=== PATIENT | female | born 1975 | race Caucasian/White ===

== ENCOUNTER → 2016-04-13 | Outpatient (CLI) | payer OTHER ==
--- NOTE | 2016-04-13 19:35 | MR ---
EXAMINATION TYPE: MR lumbar spine wo con DATE OF EXAM: 04/13/2016 5:34 PM COMPARISON: NONE HISTORY: Low Back Pain TECHNIQUE: Multiplanar, multisequence images of the lumbar spine were acquired. T12-L1 there is Schmorl's node moderate degenerative disc disease is a small focal left paracentral d isc herniation. Mild compression of the thecal sac. Neural foramina remain patent. L1-L2: Normal disc appearance without desiccation. No herniation, protrusion or disc bulging. No ca nal stenosis is present. Foramina are patent bilaterally. L2-L3: Normal disc appearance without desiccation. No herniation, protrusion or disc bulging. No ca nal stenosis is present. Foramina are patent bilaterally. Mild hypertrophic change of the facets L3-L4: Normal disc appearance without desiccation. No herniation, protrusion or disc bulging. No ca nal stenosis is present. Foramina are patent bilaterally. Mild hypertrophic change of the facets. L4-L5: Normal disc appearance without desiccation. No herniation, protrusion or disc bulging. No ca nal stenosis is present. Foramina are patent bilaterally. Mild hypertrophic change of the facets. L5-S1: Normal disc appearance without desiccation. No herniation, protrusion or disc bulging. No ca nal stenosis is present. Foramina are patent bilaterally. Mild hypertrophic change of the facets. Lumbar segments are intact. No paraspinal masses are identified. Conus medullaris has a normal appe arance. Cysts are seen within the adnexa bilaterally likely related to the ovary with the largest on the left measuring 1.8 cm. IMPRESSION: At T12-L1 there is a focal small left paracentral disc herniation with mild effacement of thecal sac but no evidence of nerve root impingement. 1.8 cm left ovarian cyst
== END | disposition home or self-care (01) ==
LOC: RADMRIMAIN 16:42
PROVIDERS: ATTEND Physician Assistant
DX: M51.25 Other intervertebral disc displacement, thoracolumbar region (principal)
CPT/HCPCS: 72148

== ENCOUNTER → 2016-04-28 | Outpatient (CLI) | payer OTHER ==
[2016-04-20 13:19] VITALS: BMI 26.6
[2016-04-28 15:05] VITALS: BP 120/85; PULSE 86; RESP 16; TEMP 97.7
--- NOTE | 2016-04-28 16:04 | P.HPIM ---
History of Present Illness H&P Date: 04/28/16 Chief Complaint: low back pain This is a 41-year-old patient referred by Dr. Rabago for chronic pain in low back and legs. Patient has been taking medications from primary care physician including tramadol medications with some relief but with nausea to these medications. Patient denies adverse drug effects from medications. Patient also denies new-onset weakness, bowel/bladder incontinence, or any other signs or symptoms of cauda equina syndrome. There are no signs of acute intoxication, and no indications of medication diversion or overuse. Patient notes that pain worsens significantly with standing and walking, and improves with rest, ice, and medication. Patient has used several types of medications for pain, including NSAIDS, OPIOIDS, TRAMADOL, ANTIDEPRESSANTS, and BENZODIAZEPINES. Patient HAS NOT had surgery. Patient HAS NOT had injections previously. Patient HAS NOT had physical therapy recently. In addition to above, 13-point review of systems is also negative for chest pain , shortness of breath, changes in vision, changes in hearing, new onset weakness , abdominal pain, diarrhea, extreme fatigue, malaise, fever, skin changes, homicidal or suicidal ideation, or bowel or bladder incontinence. Vital Signs: Reviewed in EMR Gen: WDWN, AAOx3, NAD HEENT: NCAT, EOMI, hearing grossly normal Pulm: resp unlabored Abd: soft, NT, ND Neck: supple, trachea midline ROM in flexion lumbar spine: reduced ROM in extension lumbar spine: reduced Lumbar paravertebral tenderness: + Facet loading: ++ bilateral SI joint tenderness: + bilateral, R > L Kali's test: + R >> L Lower extremity: strength preserved Neuro: CN II-XII grossly intact Past Medical History Past Medical History: Osteoarthritis (OA), Thyroid Disorder Additional Past Medical History / Comment(s): lower back pain History of Any Multi-Drug Resistant Organisms: None Reported Past Surgical History: Appendectomy, Cholecystectomy, Tonsillectomy, Tubal Ligation Additional Past Surgical History / Comment(s): Tubes placed in ears when 5 years old. Past Anesthesia/Blood Transfusion Reactions: No Reported Reaction Past Psychological History: No Psychological Hx Reported Smoking Status: Current every day smoker Past Alcohol Use History: Occasional Additional Past Alcohol Use History / Comment(s): smoker since 11 years old 1ppd Past Drug Use History: None Reported - Past Family History Mother Family Medical History: No Reported History Medications and Allergies Home Medications Medication Instructions Recorded Confirmed Type Gabapentin [Neurontin] 300 mg PO TID 02/13/16 04/20/16 History Levothyroxine Sodium [Synthroid] 175 mcg PO DAILY 02/13/16 04/20/16 History Amitriptyline HCl [Elavil] 75 mg PO BID 04/20/16 04/28/16 History Cyclobenzaprine [Flexeril] 10 mg PO TID 04/20/16 04/28/16 History Meloxicam [Mobic] 15 mg PO DAILY 04/20/16 04/28/16 History traMADol HCl [Ultram] 50 mg PO DAILY 04/20/16 04/28/16 History Allergies Allergy/AdvReac Type Severity Reaction Status Date / Time No Known Allergies Allergy Verified 04/28/16 14:55 Results Comments: MRI lumbar spine dated 04/13/2016 demonstrates a Schmorl's node of the T12-L1 level with moderate degenerative disc disease and a small focal left paracentral disc herniation. The remainder of the lumbar spine demonstrates normal disc appearance is without desiccation and mild hypertrophic changes of the facet at the L2-L3, L3-L4, L4-L5, and L5-S1 levels. Assessment and Plan (1) Lumbosacral spondylosis without myelopathy Status: Chronic (2) Chronic pain syndrome Status: Chronic (3) Lumbar degenerative disc disease Status: Chronic Plan: 1. Explanation: Opioid and psychological risk scores were reviewed. Diagnoses , prognoses, and multiple treatment options including but not limited to physical therapy, interventional therapies, adjuvant medical therapies, narcotic medication therapies, and surgery were discussed with the patient and all questions were answered to the patient's satisfaction. 2. Opioid agreement: no opioids prescribed today 3. Counseling: The patient was counseled extensively on SMOKING CESSATION, BODY MASS INDEX, EXERCISE. Specifically, the patient was instructed regarding the importance of smoking cessation, obesity, and exercise in the context of both chronic pain and overall health. 4. Procedures: bilateral lumbar MBB as soon as possible 5. Consultations: none 6. Investigations: none 7. Medications: Voltaren gel 8. Disposition: f/u for procedure as scheduled PQRS measures: 1-Patient's medications are documented in the chart. 2-Tobacco use is positive, counseling given 3-Patient has not had a pneumococcal vaccine. 4-Advanced care planning discussed, patient unable to give. 5-Opioid contract NOT signed with the patient (no opioids given today). 6-Pain positive, follow-up visit or procedure scheduled 7-Patient's blood pressure measured and documented, and patient will follow up with the primary care due to hypertension. 8-Patient's weight was measured, and body mass index ABOVE the normal limits, and counseling was done. Patient instructed to follow up with PCP. 9-Patient WAS NOT identified as an unhealthy alcohol user. Time with Patient: Greater than 30
== END | disposition home or self-care (01) ==
LOC: PNWHC3 14:28
PROVIDERS: ATTEND Anesthesiology
DX: M47.816 Spondylosis without myelopathy or radiculopathy, lumbar region (principal); G89.4 Chronic pain syndrome; M51.36 Other intervertebral disc degeneration, lumbar region; Z79.899 Other long term (current) drug therapy; F17.200 Nicotine dependence, unspecified, uncomplicated; I10 Essential (primary) hypertension; M19.90 Unspecified osteoarthritis, unspecified site; E07.9 Disorder of thyroid, unspecified
CPT/HCPCS: 99211

== ENCOUNTER 2016-05-09 06:28 | Day surgery (SDC) | payer OTHER ==
[2016-05-06 08:30] VITALS: BMI 25.7
[2016-05-09] MEDS ORDERED: LIDOCAINE 1% 20 ML VIAL (10MG/ML) FOR IV START INTRADERMA ONE (06:31)
[2016-05-09] MEDS ORDERED: LACTATED RINGERS 1,000 ML IV ONE (06:44)
[2016-05-09 06:47] VITALS: RESP 16; TEMP 96.1
[2016-05-09] MEDS ORDERED: fentaNYL (PF) 50 MCG/ML 2 ML AMP ONE (07:31)
[2016-05-09] MEDS ORDERED: BUPIVACAINE (PF) 0.5% 30 ML VIAL ONE (07:31)
[2016-05-09] MEDS ORDERED: IV FLUID CONTINUATION 1,000 ML IV ONE (08:05)
--- NOTE | 2016-05-09 08:06 | P.PCN ---
Date of Procedure: 05/09/16 Preoperative Diagnosis: Lumbar spondylosis without myelopathy Postoperative Diagnosis: Lumbar spondylosis without myelopathy Procedure(s) Performed: Bilateral lumbar medial branch block under fluoroscopic guidance Anesthesia: MAC Surgeon: Hodan Gilbert Pathology: none sent Condition: stable Disposition: PACU Description of Procedure: The patient was seen in the preoperative holding area consent was obtained then she was brought into the procedure room and placed in prone position. Skin was prepped with ChloraPrep and draped in a sterile manner. Lidocaine 1% was used to numb the skin up at the target points that were chosen as follows: For the L5 -S1 level which corresponds to the dorsal ramus of L5 the target points were at the superior medial aspect of the sacral alar on each side of the spine on the AP view of fluoroscopy. For the L3 and L4 medial branches the target points were the connection between the transverse process and the superior to go process of L4 and L5 vertebra respectively on the oblique view of fluoroscopy. I used 22-gauge 3-1/2 inch Quincke spinal needle for this procedure and after contacting bone at the target points mentioned above I injected 1 mL of Marcaine 0.5%. I did not use steroids for this procedure and also did not give any IV fentanyl. Patient tolerated procedure well. On floroscopy it looks that there is sacralization of the fifth lumbar vertebra however this was not mentioned on the patient's lumbar spine MRI.
[2016-05-09] MEDS ORDERED: LACTATED RINGERS 1,000 ML IV SCH (08:15)
[2016-05-09 08:27] VITALS: BP 123/81; PULSE 81
--- NOTE | 2016-05-09 08:52 | FL ---
EXAMINATION TYPE: FL guided pain mgmt statistic DATE OF EXAM: 05/09/2016 8:03 AM HISTORY: Flouroscopy time 14 seconds of fluoroscopy provided. IMPRESSION: 1. Fluoroscopy time.
== END 2016-05-09 08:41 | disposition home or self-care (01) ==
LOC: ORPAIN 06:28
PROVIDERS: ATTEND Anesthesiology
DX: M47.816 Spondylosis without myelopathy or radiculopathy, lumbar region (principal); M43.27 Fusion of spine, lumbosacral region
CPT/HCPCS: 81025; 64493; 64494; 64495; J3010

== ENCOUNTER 2016-05-16 18:59 | Emergency (ER) | payer OTHER ==
--- NOTE | 2016-05-16 19:55 | ED ---
General Adult HPI - General Chief complaint: Skin/Abscess/Foreign Body Stated complaint: finger pain Time Seen by Provider: 05/16/16 19:40 Source: patient, RN notes reviewed Mode of arrival: wheelchair Limitations: no limitations - History of Present Illness Initial comments: Patient 41-year-old female who presents emergency room today with a chief complaint of injury to the left thumb occurred approximately 1 AM this morning. Patient does admit that got stuck in a house door. Patient denies any other injuries or complaints. Denies any other symptoms. Patient denies any recent fever, chills, shortness of breath, chest pain, back pain, abdominal pain, nausea or vomiting, numbness or tingling, dysuria or hematuria, constipation or diarrhea, headaches or visual changes, or any other complaints. - Related Data Home Medications Medication Instructions Recorded Confirmed Gabapentin [Neurontin] 300 mg PO HS PRN 02/13/16 05/16/16 Levothyroxine Sodium [Synthroid] 175 mcg PO DAILY 02/13/16 05/16/16 Cyclobenzaprine [Flexeril] 10 mg PO TID 04/20/16 05/16/16 Meloxicam [Mobic] 15 mg PO DAILY 04/20/16 05/16/16 Previous Rx's Medication Instructions Recorded Cephalexin [Keflex] 500 mg PO Q12HR 10 Days 05/16/16 Allergies Allergy/AdvReac Type Severity Reaction Status Date / Time No Known Allergies Allergy Verified 05/16/16 19:49 Review of Systems ROS Statement: Those systems with pertinent positive or pertinent negative responses have been documented in the HPI. ROS Other: All systems not noted in ROS Statement are negative. Past Medical History Past Medical History: Osteoarthritis (OA), Skin Disorder, Thyroid Disorder Additional Past Medical History / Comment(s): lower back pain, psoriasis History of Any Multi-Drug Resistant Organisms: None Reported Past Surgical History: Appendectomy, Cholecystectomy, Tonsillectomy, Tubal Ligation Additional Past Surgical History / Comment(s): Tubes placed in ears when 5 years old. Past Anesthesia/Blood Transfusion Reactions: No Reported Reaction Past Psychological History: No Psychological Hx Reported Smoking Status: Current every day smoker Past Alcohol Use History: Occasional Additional Past Alcohol Use History / Comment(s): smoker since 11 years old 1ppd Past Drug Use History: None Reported - Past Family History Mother Family Medical History: No Reported History General Exam - General Exam Comments Initial Comments: General: The patient is awake and alert, in no distress, and does not appear acutely ill. Neck: The neck is supple, there is no tenderness or JVD. Cardiovascular: There is a regular rate and rhythm. No murmur, rub or gallop is appreciated. Respiratory: Lungs are clear to auscultation, respirations are non-labored, breath sounds are equal. No wheezes, stridor, rales, or rhonchi. Musculoskeletal: Full range of motion. Sensation intact pulses bilateral 2+. Strength 5/5. Neurological: A&O x 3. CN II-XII intact, There are no obvious motor or sensory deficits. Coordination appears grossly intact. Speech is normal. Skin: Avulsion of nail of the left thumb. Psychiatric: Normal mood and affect. Limitations: no limitations Course Vital Signs 05/16/16 19:12 Temperature 98.4 F Pulse Rate 80 Respiratory 20 Rate Blood Pressure 145/83 O2 Sat by Pulse 96 Oximetry Procedures - Procedures Initial comment: Patient's left thumb was anesthetized at the head of the metacarpals with 1% lidocaine. Area was heavily irrigated with saline under pressure revealing avulsion type laceration of the nailbed. Nothing suturable. Nail was cleaned cut down and touch back in under nail fold and sutured with 5-0 nylon. 2 sutures placed to both medial and lateral aspect to hold nail into place. Patient tolerated well. Medical Decision Making - Medical Decision Making X-rays reviewed and shows no acute fracture dislocation. Patient's wound was irrigated heavily here in the emergency room. The skin avulsion type of the nailbed. Patient's nail tacked back down here in the emergency room. Patient is advised follow-up with hand specialist. Wound has been open for greater than 18 hours. Patient will be started on antibiotics. Tetanus updated. Disposition Clinical Impression: Avulsion of nail Disposition: HOME SELF-CARE Condition: Good Instructions: Nail Avulsion (ED) Additional Instructions: Please follow-up with orthopedics over the next 2 days. Please use antibiotic as prescribed. Please return to emergency room symptoms increase or worsen or for any other concerns. Prescriptions: Cephalexin [Keflex] 500 mg PO Q12HR 10 Days Referrals: Elan Rabago PAC [Primary Care Provider] - 1-2 days Mervin Lopez DO [Doctor of Osteopathic Medicine] - 1-2 days Time of Disposition: 20:39
--- NOTE | 2016-05-16 20:04 | XR ---
EXAMINATION TYPE: XR finger LT DATE OF EXAM: 05/16/2016 7:55 PM COMPARISON: NONE HISTORY: Laceration and pain TECHNIQUE: 3 views FINDINGS: There is soft tissue deformity at the nail bed consistent with laceration. I see no fractur e. Joint spaces are normal. IMPRESSION: Soft tissue deformity of the and of the thumb. No fracture.
[2016-05-16] MEDS ORDERED: DIPH,PERTUS(ACELL)TETVAC-LF 0.5 ML VIAL IM ONE (20:10)
[2016-05-16 20:56] VITALS: BP 146/89; PULSE 83; RESP 16; TEMP 97.7
== END 2016-05-16 20:56 | disposition home or self-care (01) ==
LOC: EC 18:59
DX: S61.112A Laceration without foreign body of left thumb with damage to nail, initial encounter (principal); M19.90 Unspecified osteoarthritis, unspecified site; E07.9 Disorder of thyroid, unspecified; Z23 Encounter for immunization; F17.200 Nicotine dependence, unspecified, uncomplicated; W23.0XXA Caught, crushed, jammed, or pinched between moving objects, initial encounter
CPT/HCPCS: 12001; 90471; 90715; 99283

== ENCOUNTER 2016-06-15 09:18 | Day surgery (SDC) | payer OTHER ==
[2016-06-13 09:36] VITALS: BMI 24.3
[~2016-06-15 09:18] MED LIST: LACTATED RINGERS 1,000 ML IV SCH
[2016-06-15 09:30] VITALS: RESP 16; TEMP 98.1
[2016-06-15] MEDS ORDERED: LIDOCAINE 1% 20 ML VIAL (10MG/ML) FOR IV START INTRADERMA ONE (09:34)
[2016-06-15] MEDS ORDERED: MIDAZOLAM 2 MG/2 ML VIAL ONE (09:50)
[2016-06-15] MEDS ORDERED: TRIAMCINOLONE ACETONIDE 40 MG/ML 1 ML VIAL ONE (09:50)
[2016-06-15] MEDS ORDERED: BUPIVACAINE (PF) 0.5% 30 ML VIAL ONE (09:50)
[2016-06-15] MEDS ORDERED: fentaNYL (PF) 50 MCG/ML 2 ML AMP ONE (09:50)
--- NOTE | 2016-06-15 10:06 | P.PCN ---
Date of Procedure: 06/15/16 Surgeon: Jakub Polanco Pathology: none sent Condition: stable Disposition: PACU Description of Procedure: PREOPERATIVE DIAGNOSIS: L3-L4, L4-L5, and L5-S1 spondylosis without myelopathy and facet arthropathy. POSTOPERATIVE DIAGNOSIS: L3-L4, L4-L5, and L5-S1 spondylosis without myelopathy and facet arthropathy. PROCEDURE DESCRIPTION: Patient presents for bilateral L3, L4 and L5 diagnostic medial branch blocks under fluoroscopic guidance. The procedure is performed using fluoroscopic guidance during needle placement to assure proper position and maximize safety. ANESTHESIA: Local with 1% lidocaine; conscious sedation EBL: Minimal PROCEDURE INDICATION: Patient with lumbar facet arthropathy signs and symptoms, here for diagnostic medial branch block #2 after three weeks of relief from MBB #1 during which no steroids were used. Pt does not take any blood thinning medications. PROCEDURE DESCRIPTION: The patient was seen and identified in the preoperative area. Risks, benefits, complications, and alternatives were discussed with the patient (including but not limited to incomplete pain relief, bleeding, infection, nerve damage, and allergies to medications), the patient agreed to proceed with the procedure and signed the consent after all questions were answered. Patient was taken to the OR and time out was completed to verify proper patient, position, laterality of pain, and allergies. Pt was placed in the prone position and a pillow was placed under the abdomen to reduce lumbar lordosis. The lumbosacral area was prepped and draped in the usual sterile fashion. Using oblique fluoroscopy, the eye of the "Dat dog" of right L4 vertebral body, which corresponds to the path of the medial branch originating from the level above, which is L3 in this case, was identified. Subsequently, a 22-gauge 3.5-inch spinal needle was inserted under fluoroscopic guidance toward the eye of the "Dat dog" of the right L4 vertebral body, corresponding to the junction of the superior articular process and the transverse process of the pedicle of the same level. After needle tip confirmation on lateral view and after negative aspiration for CSF and blood and without paresthesias, 1 mL of a 6 ml solution of 0.5% preservative-free bupivacaine and 40 mg Kenalog was injected. Subsequently the needle was withdrawn intact and the same procedure was repeated for the right L4, right L5, left L3, left L4, and left L5 medial branches which together with right L3 medial branch correspond to the sensory innervation of the bilateral L3-L4, L4-L5, and L5-S1 facet joints. Needle was withdrawn intact after each injection. At the end of the procedure, the skin was cleansed and bandages were applied. COMPLICATIONS: None. DISPOSITION/PLAN: The patient taken to the recovery area after the procedure in a stable condition for observation. Patient was reexamined prior to discharge and there were no issues. Patient was discharged home, accompanied by an adult, after meeting discharged criteria. Discharge instructions were give to the patient by the staff. Patient was specifically instructed not to drive today and to rest for the rest of the day. Patient will follow up for left lumbar RFA if this procedure does not give her extended relief; if it does, we will see her back in clinic in 4-6 weeks.
[2016-06-15] MEDS ORDERED: IV FLUID CONTINUATION 1,000 ML IV ONE (10:19)
[2016-06-15 10:35] VITALS: BP 134/88; PULSE 81
--- NOTE | 2016-06-15 11:53 | FL ---
EXAMINATION TYPE: FL guided pain mgmt statistic DATE OF EXAM: 06/15/2016 10:18 AM HISTORY: Flouroscopy time 13 seconds of fluoroscopy provided. IMPRESSION: 1. Fluoroscopy time.
== END 2016-06-15 10:50 | disposition home or self-care (01) ==
LOC: ORPAIN 09:18
PROVIDERS: ATTEND Anesthesiology
DX: G89.29 Other chronic pain (principal); M47.817 Spondylosis without myelopathy or radiculopathy, lumbosacral region; M46.96 Unspecified inflammatory spondylopathy, lumbar region; E03.9 Hypothyroidism, unspecified; Z79.1 Long term (current) use of non-steroidal anti-inflammatories (NSAID); Z79.899 Other long term (current) drug therapy
CPT/HCPCS: 81025; 64493; 64494; 64495; 99152; 99153; J2250; J3301; J3010

== ENCOUNTER → 2016-07-28 | Outpatient (CLI) | payer OTHER ==
--- NOTE | 2016-07-28 21:12 | MR ---
EXAMINATION TYPE: MR lumbar spine wo/w con DATE OF EXAM: 07/28/2016 5:07 PM COMPARISON: Prior MRI lumbar spine April 13, 2016 HISTORY: Chronic low back pain, left-sided sciatica, and herniated disc all per order. Back pain into left lower extremity for 4 years per patient. TECHNIQUE: Multiplanar, multisequence images of the lumbar spine is performed without and with IV contrast, util izing 15 mL intravenous MultiHance FINDINGS: Sagittal images of the lumbar spine show vertebral body heights and alignment to appear sat isfactory. Prominent Schmorl nodes T11-T12 and T12-L1 disc space level are redemonstrated. There is m ultilevel disc desiccation. There is moderate disc space narrowing L5-S1 level redemonstrated. Oil Painter ior disc herniation T12-L1 level is redemonstrated on sagittal images. The conus medullaris remains s omewhat high in position ending at mid T12 vertebral body level but no suspicious signal or clumping of lumbosacral nerve roots is present. The bone marrow signal intensity is within normal limits. No suspicious postcontrast enhancement is seen. Mild multilevel spurring in the lower thoracic and upper lumbar spine is redemonstrated. Axial images at the T12-L1 level shows mild to moderate broad disc bulge with left paracentral/forami nal disc protrusion component on axial image 28, there is effacement of the anterolateral thecal sac, bilateral neural foramina are patent. No significant change from prior study is seen. Axial images at the L1-L2 through the L3-L4 levels show mild broad disc bulge and facet degenerative changes bilaterally, spinal canal is preserved and bilateral neural foramina remain patent. Axial images at the L4-L5 level shows mild/moderate facet degenerative changes bilaterally. Spinal ca nal is preserved and bilateral neural foramina are patent. Axial images at L5-S1 level show mild facet degenerative changes bilaterally. There is prominence of epidural fat at this level redemonstrated. Bilateral neural foramina are patent. There is redemonstration of normal size left ovary with peripheral follicles on inferior most axial i mages. IMPRESSION: Some multilevel degenerative changes in lumbar spine as detailed above most prominent at T12-L1 level, no significant change from prior MRI, no significant finding is seen to account for pat cheri's left-sided radiculopathy type symptoms.
== END | disposition home or self-care (01) ==
LOC: RADMRIMAIN 15:42
PROVIDERS: ATTEND Physician Assistant
DX: M47.815 Spondylosis without myelopathy or radiculopathy, thoracolumbar region (principal); G89.29 Other chronic pain
CPT/HCPCS: 72158; A9577

== ENCOUNTER → 2017-01-06 | Outpatient (CLI) | payer OTHER ==
--- NOTE | 2017-01-09 11:59 | MM ---
Reason for exam: screening (asymptomatic). Last mammogram was performed 1 year and 9 months ago. Physical Findings: A clinical breast exam by your physician is recommended on an annual basis and results should be correlated with mammographic findings. MG Screening Mammo w CAD Bilateral CC and MLO view(s) were taken. Prior study comparison: April 06, 2015, bilateral MG screening mammo w CAD. The breast tissue is heterogeneously dense. This may lower the sensitivity of mammography. There is no discrete abnormality. No significant changes when compared with prior studies. ASSESSMENT: Negative, BI-RAD 1 RECOMMENDATION: Routine screening mammogram of both breasts in 1 year.
== END | disposition home or self-care (01) ==
LOC: RADMAMWWP 08:48
PROVIDERS: ATTEND Family Medicine
DX: Z12.31 Encounter for screening mammogram for malignant neoplasm of breast (principal)

== ENCOUNTER 2017-09-10 21:43 | Emergency (ER) | payer OTHER ==
[2017-09-10] MEDS ORDERED: SODIUM CHLORIDE 0.9% 1,000 ML IV STA (22:18)
[2017-09-10 22:53] LABS: Appearance,Urine Clear (Clear); Bilirubin,Urine Negative (Negative); Blood,Urine Negative (Negative); Color,Urine Yellow; Glucose,Urine (UA) Negative (Negative); Ketones,Urine Negative (Negative); Leukocyte Esterase,Urine Negative (Negative); Nitrite,Urine Negative (Negative); PH, Urine 5.5 (5.0-8.0); Protein,Urine Negative (Negative); Specific Gravity,Urine 1.018 (1.001-1.035)
[2017-09-10 22:53] LABS: Basophils % (A) 0 %; Eosinophils # (A) 0.3 k/uL (0-0.7); Eosinophils % (A) 2 %; HCT 39.8 % (34.0-46.0); Lymphocytes # (A) 2.9 k/uL (1.0-4.8); Lymphocytes % (A) 26 %; MCH 27.9 pg (25.0-35.0); MCHC 32.7 g/dL (31.0-37.0); MCV 85.1 fL (80.0-100.0); Mean Platelet Volume 7.1; Monocytes # (A) 0.5 k/uL (0-1.0); Monocytes % (A) 4 %; Neutrophils # (A) 7.4 k/uL (1.3-7.7); Neutrophils % (A) 66 %; Platelet Count 315 k/uL (150-450); RBC 4.68 m/uL (3.80-5.40); RDW 15.1 % (11.5-15.5); WBC 11.2 k/uL (3.8-10.6)
[2017-09-10 23:09] LABS: ALT 28 U/L (9-52); AST 27 U/L (14-36); Albumin 4.3 g/dL (3.5-5.0); Alkaline Phosphatase 79 U/L (38-126); Anion Gap 14 mmol/L; Blood Urea Nitrogen 15 mg/dL (7-17); Calcium 10.3 mg/dL (8.4-10.2); Carbon Dioxide 21 mmol/L (22-30); Chloride 106 mmol/L (98-107); Glucose 98 mg/dL (74-99); Lipase 80 U/L (23-300); Magnesium 2.1 mg/dL (1.6-2.3); Potassium 4.1 mmol/L (3.5-5.1); Sodium 141 mmol/L (137-145); Total Bilirubin 0.3 mg/dL (0.2-1.3)
--- NOTE | 2017-09-10 23:33 | CT ---
EXAMINATION TYPE: CT abdomen pelvis w con DATE OF EXAM: 09/10/2017 COMPARISON: 02/16/2016 HISTORY: LLQ abd pain x2 days. CT DLP: 826 mGycm Automated exposure control for dose reduction was used. TECHNIQUE: Helical acquisition of images was performed from the lung bases through the pelvis. CONTRAST: Performed without Oral Contrast and with IV Contrast, patient injected with 100ml mL of Isovue 300. FINDINGS: There is mild subsegmental atelectasis at the right posterior lung base. There are small hiatal herni a. Liver spleen pancreas appear normal. There are clips from cholecystectomy. Bile ducts are not dilated . There is no adrenal mass. Kidneys show satisfactory contrast opacification. There is no hydronephrosi s. Ureters are not dilated. There is no retroperitoneal adenopathy. There is no ascites. I see no int estinal wall thickening. There are no dilated loops. Bladder distends smoothly. The uterus is antever iris. I see no bony destructive process. Appendix is not seen. There is no sign of appendicitis. IMPRESSION: NEGATIVE CT SCAN OF THE ABDOMEN AND PELVIS. THERE IS CLEARING OF THE INFILTRATE AND ATELECTASIS AT TH E LUNG BASES AND PLEURAL FLUID COMPARED TO OLD EXAM.
[2017-09-11] MEDS ORDERED: KETOROLAC 30 MG/ML 1 ML VIAL IVP STA (00:03)
--- NOTE | 2017-09-11 00:07 | ED ---
Abdominal Pain HPI - General Chief Complaint: Abdominal Pain Stated Complaint: abdominal pain Time Seen by Provider: 09/10/17 21:53 Source: patient Mode of arrival: ambulatory Limitations: no limitations - History of Present Illness Initial Comments: Patient is a 42-year-old female presenting for abdominal pain. She states that the pain started last night and is located on the lower left portion of her abdomen. It feels like a stabbing constant pain that radiates upward and is worse with coughing or movement. She denies any fevers or chills as well as nausea/vomiting but does admit to diarrhea. She also denies any dysuria or abnormal vaginal bleeding or discharge. - Related Data Home Medications Medication Instructions Recorded Confirmed Gabapentin [Neurontin] 300 mg PO QAM PRN 02/13/16 06/13/16 Levothyroxine Sodium [Synthroid] 175 mcg PO DAILY 02/13/16 06/13/16 Cyclobenzaprine [Flexeril] 10 mg PO TID PRN 04/20/16 06/13/16 Meloxicam [Mobic] 15 mg PO DAILY PRN 04/20/16 06/15/16 Previous Rx's Medication Instructions Recorded Albuterol Inhaler [Ventolin Hfa 1 - 2 puff INHALATION Q6HR PRN #1 09/11/17 Inhaler] inhaler Ibuprofen [Motrin] 600 mg PO Q6HR PRN #20 tab 09/11/17 Allergies Allergy/AdvReac Type Severity Reaction Status Date / Time No Known Allergies Allergy Verified 09/10/17 21:51 Review of Systems ROS Statement: Those systems with pertinent positive or pertinent negative responses have been documented in the HPI. Constitutional: Negative for chills, fatigue and fever. HENT: Negative for congestion. Respiratory: Negative for chest tightness, shortness of breath and wheezing. Negative for cough Cardiovascular: Negative for chest pain and palpitations. Gastrointestinal: Positive for abdominal pain and diarrhea. Negative for abdominal distention, nausea and vomiting. Genitourinary: Negative for dysuria. Musculoskeletal: Negative for back pain, neck pain and neck stiffness. Skin: Negative for color change. Neurological: Negative for dizziness, speech difficulty, weakness and light- headedness. Psychiatric/Behavioral: Negative for agitation and confusion. The patient is not nervous/anxious. ROS Other: All systems not noted in ROS Statement are negative. Past Medical History Past Medical History: Osteoarthritis (OA), Skin Disorder, Thyroid Disorder Additional Past Medical History / Comment(s): lower back pain, psoriasis History of Any Multi-Drug Resistant Organisms: None Reported Past Surgical History: Appendectomy, Cholecystectomy, Tonsillectomy, Tubal Ligation Additional Past Surgical History / Comment(s): Tubes placed in ears when 5 years old. Past Anesthesia/Blood Transfusion Reactions: No Reported Reaction Past Psychological History: No Psychological Hx Reported Smoking Status: Current every day smoker Past Alcohol Use History: Occasional Past Drug Use History: None Reported - Past Family History Mother Family Medical History: No Reported History General Exam - General Exam Comments Initial Comments: Constitutional: Pt is oriented to person, place, and time. Pt appears well- developed and well-nourished. No distress. HENT: Head: Normocephalic and atraumatic. Eyes: EOM are normal. Neck: Normal range of motion. Neck supple. Cardiovascular: Normal rate, regular rhythm, S1 normal, S2 normal and normal heart sounds. Exam reveals no gallop and no friction rub. No murmur heard. Pulmonary/Chest: Effort normal and breath sounds normal. No tachypnea and no bradypnea. No respiratory distress. No wheezes or rales noted. Abdominal: Soft. Bowel sounds are normal. Pt exhibits no shifting dullness, no distension, no pulsatile liver, no fluid wave, no abdominal bruit and no ascites. There is no tenderness. There is no rigidity, no rebound, no guarding, no tenderness at McBurney's point and negative Leone's sign. Musculoskeletal: Normal range of motion. Neurological: Pt is alert and oriented to person, place, and time. No cranial nerve deficit. Skin: Skin is warm and dry. No rash noted. Pt is not diaphoretic. No erythema. No pallor. Psychiatric: Pt has a normal mood and affect. Pt behavior is normal. Thought content normal. Limitations: no limitations Course Vital Signs 09/10/17 21:49 Temperature 98.6 F Pulse Rate 80 Respiratory 18 Rate Blood Pressure 139/70 O2 Sat by Pulse 100 Oximetry Medical Decision Making - Medical Decision Making Laboratory studies currently show that there is no significant leukocytosis and urinalysis was negative for both and urinary tract infection. CT of the abdomen was performed and showed no evidence of acute pathology as well. Etiology of the symptoms are still unclear and therefore transvaginal ultrasound to evaluate for ovarian torsion and/or ovarian cyst has been ordered and is pending. 1:19AM - pelvic ultrasound was unable to visualize bilateral ovaries but uterus showed no evidence acute pathology. Therefore pelvic exam was completed and there was no adnexal tenderness nor was there vaginal discharge or other findings consistent with infectious etiology. After further discussion, patient states that the pain is worse when she coughs as well as perform certain movements. Extensive discussion was also had with the patient that based on ultrasound of the pelvis, ovarian torsion not be completely excluded but based on physical exam findings and no adnexal tenderness, it was less likely. He was mutually decided that the patient could be discharged home with a prescription for Motrin and she should have close close follow-up with [facility] in the next 1-2 days. She is also advised to return to the emergency department if the symptoms became much worse. Lastly, the patient stated that she has been coughing long and is currently worse with her increased smoking. Because the patient was not having any chest pain or shortness breath or fevers or chills, chest x-ray was not performed. Nonetheless, it was felt that albuterol could be beneficial and therefore was prescribed. Patient was agreeable plan. - Lab Data Result diagrams: 09/10/17 22:35 09/10/17 22:35 Lab Results 09/10/17 09/10/17 09/10/17 Range/Units 22:35 22:35 22:40 WBC 11.2 H (3.8-10.6) k/uL RBC 4.68 (3.80-5.40) m/uL Hgb 13.0 (11.4-16.0) gm/dL Hct 39.8 (34.0-46.0) % MCV 85.1 (80.0-100.0) fL MCH 27.9 (25.0-35.0) pg MCHC 32.7 (31.0-37.0) g/dL RDW 15.1 (11.5-15.5) % Plt Count 315 (150-450) k/uL Neutrophils % 66 % Lymphocytes % 26 % Monocytes % 4 % Eosinophils % 2 % Basophils % 0 % Neutrophils # 7.4 (1.3-7.7) k/uL Lymphocytes # 2.9 (1.0-4.8) k/uL Monocytes # 0.5 (0-1.0) k/uL Eosinophils # 0.3 (0-0.7) k/uL Basophils # 0.0 (0-0.2) k/uL Sodium 141 (137-145) mmol/L Potassium 4.1 (3.5-5.1) mmol/L Chloride 106 (98-107) mmol/L Carbon Dioxide 21 L (22-30) mmol/L Anion Gap 14 mmol/L BUN 15 (7-17) mg/dL Creatinine 0.60 (0.52-1.04) mg/dL Est GFR (CKD-EPI)AfAm >90 (>60 ml/min/1.73 sqM) Est GFR (CKD-EPI)NonAf >90 (>60 ml/min/1.73 sqM) Glucose 98 (74-99) mg/dL Calcium 10.3 H (8.4-10.2) mg/dL Magnesium 2.1 (1.6-2.3) mg/dL Total Bilirubin 0.3 (0.2-1.3) mg/dL AST 27 (14-36) U/L ALT 28 (9-52) U/L Alkaline Phosphatase 79 (38-126) U/L Total Protein 7.0 (6.3-8.2) g/dL Albumin 4.3 (3.5-5.0) g/dL Lipase 80 (23-300) U/L Urine Color Yellow Urine Appearance Clear (Clear) Urine pH 5.5 (5.0-8.0) Ur Specific [place] 1.018 (1.001-1.035) Urine Protein Negative (Negative) Urine Glucose (UA) Negative (Negative) Urine Ketones Negative (Negative) Urine Blood Negative (Negative) Urine Nitrite Negative (Negative) Urine Bilirubin Negative (Negative) Urine Urobilinogen 2.0 (<2.0) mg/dL Ur Leukocyte Esterase Negative (Negative) Urine HCG, Qual (Not Detectd) 09/10/17 Range/Units 22:40 WBC (3.8-10.6) k/uL RBC (3.80-5.40) m/uL Hgb (11.4-16.0) gm/dL Hct (34.0-46.0) % MCV (80.0-100.0) fL MCH (25.0-35.0) pg MCHC (31.0-37.0) g/dL RDW (11.5-15.5) % Plt Count (150-450) k/uL Neutrophils % % Lymphocytes % % Monocytes % % Eosinophils % % Basophils % % Neutrophils # (1.3-7.7) k/uL Lymphocytes # (1.0-4.8) k/uL Monocytes # (0-1.0) k/uL Eosinophils # (0-0.7) k/uL Basophils # (0-0.2) k/uL Sodium (137-145) mmol/L Potassium (3.5-5.1) mmol/L Chloride (98-107) mmol/L Carbon Dioxide (22-30) mmol/L Anion Gap mmol/L BUN (7-17) mg/dL Creatinine (0.52-1.04) mg/dL Est GFR (CKD-EPI)AfAm (>60 ml/min/1.73 sqM) Est GFR (CKD-EPI)NonAf (>60 ml/min/1.73 sqM) Glucose (74-99) mg/dL Calcium (8.4-10.2) mg/dL Magnesium (1.6-2.3) mg/dL Total Bilirubin (0.2-1.3) mg/dL AST (14-36) U/L ALT (9-52) U/L Alkaline Phosphatase (38-126) U/L Total Protein (6.3-8.2) g/dL Albumin (3.5-5.0) g/dL Lipase (23-300) U/L Urine Color Urine Appearance (Clear) Urine pH (5.0-8.0) Ur Specific [place] (1.001-1.035) Urine Protein (Negative) Urine Glucose (UA) (Negative) Urine Ketones (Negative) Urine Blood (Negative) Urine Nitrite (Negative) Urine Bilirubin (Negative) Urine Urobilinogen (<2.0) mg/dL Ur Leukocyte Esterase (Negative) Urine HCG, Qual Not Detected (Not Detectd) Disposition Clinical Impression: Abdominal pain, left lower quadrant Disposition: HOME SELF-CARE Condition: Good Instructions: Abdominal Pain (ED) Prescriptions: Albuterol Inhaler [Ventolin Hfa Inhaler] 1 - 2 puff INHALATION Q6HR PRN #1 inhaler PRN Reason: Wheezing Ibuprofen [Motrin] 600 mg PO Q6HR PRN #20 tab PRN Reason: Pain Is patient prescribed a controlled substance at d/c from ED?: No Referrals: Pavel Espinoza MD [Primary Care Provider] - 1-2 days Venancio Bustillo DO [Doctor of Osteopathic Medicine] - 1-2 days Time of Disposition: 01:21
--- NOTE | 2017-09-11 01:01 | US ---
EXAMINATION TYPE: US pelvis complete transvag DATE OF EXAM: 09/11/2017 COMPARISON: CT scan 1 1/2 hours previous CLINICAL HISTORY: Pain. TECHNIQUE: Transabdominal sonographic images of the pelvis were acquired. Transvaginal sonographic images were medically necessary to better assess the following anatomy: ovaries Date of LMP: 08/27/17 EXAM MEASUREMENTS: Uterus: 9.5 x 4.6 x 4.7 cm Endometrial Stripe: 1.2 cm Right Ovary: obscured by bowel gas Left Ovary: obscured by bowel gas 1. Uterus: Anteverted 2. Endometrium: wnl 3. Right Ovary: Obscured by overlying bowel gas 4. Left Ovary: Obscured by overlying bowel gas 5. Bilateral Adnexa: wnl 6. Posterior cul-de-sac: wnl IMPRESSION: Normal uterus and endometrium. No adnexal mass or free fluid.
[2017-09-11 01:48] VITALS: BP 135/76; PULSE 73; RESP 16; TEMP 98.2
== END 2017-09-11 01:57 | disposition home or self-care (01) ==
LOC: EC 21:43
DX: R10.32 Left lower quadrant pain (principal); R19.7 Diarrhea, unspecified; E07.9 Disorder of thyroid, unspecified; F17.200 Nicotine dependence, unspecified, uncomplicated; Z90.49 Acquired absence of other specified parts of digestive tract; Z98.51 Tubal ligation status; Z79.899 Other long term (current) drug therapy
CPT/HCPCS: 99284; 96374; 96361 ×2; 36415; 80053; 83690; 83735; 85025; 81003; 81025; 76856; 76830; 74177; J1885; Q9967

== ENCOUNTER → 2018-11-09 | Outpatient (CLI) | payer OTHER ==
--- NOTE | 2018-11-12 09:51 | MM ---
Reason for exam: screening (asymptomatic). Last mammogram was performed 1 year and 10 months ago. Physical Findings: A clinical breast exam by your physician is recommended on an annual basis and results should be correlated with mammographic findings. MG Screening Mammo w CAD Bilateral CC and MLO view(s) were taken. Prior study comparison: January 06, 2017, bilateral MG screening mammo w CAD. April 06, 2015, bilateral MG screening mammo w CAD. The breast tissue is heterogeneously dense. This may lower the sensitivity of mammography. No suspicious abnormality. No significant changes when compared with prior studies. ASSESSMENT: Negative, BI-RAD 1 RECOMMENDATION: Routine screening mammogram of both breasts in 1 year. Manage on a clinical basis and further history/physical is recommended for sore/painful breasts. If focal pain, diagnostic exam recommended.
== END | disposition home or self-care (01) ==
LOC: RADMAMWWP 10:19
PROVIDERS: ATTEND Family Medicine
DX: Z12.31 Encounter for screening mammogram for malignant neoplasm of breast (principal)
CPT/HCPCS: 77067

== ENCOUNTER 2019-02-09 16:25 | Emergency (ER) | payer OTHER ==
[2019-02-09] MEDS ORDERED: IPRATROPIUM-ALBUTEROL 3 ML NEB INHALATION STA (16:48)
[2019-02-09] MEDS ORDERED: methylPREDNISolone SOD SUCCI 125 MG/2 ML VIAL IV STA (16:48)
[2019-02-09 17:25] LABS: Basophils # (A) 0.1 k/uL (0-0.2); Basophils % (A) 1 %; Eosinophils # (A) 0.3 k/uL (0-0.7); Eosinophils % (A) 3 %; HCT 40.3 % (34.0-46.0); HGB 13.2 gm/dL (11.4-16.0); Lymphocytes # (A) 1.5 k/uL (1.0-4.8); Lymphocytes % (A) 16 %; MCH 29.6 pg (25.0-35.0); MCHC 32.8 g/dL (31.0-37.0); MCV 90.1 fL (80.0-100.0); Mean Platelet Volume 7.2; Monocytes # (A) 0.4 k/uL (0-1.0); Monocytes % (A) 5 %; Neutrophils % (A) 73 %; Platelet Count 284 k/uL (150-450); RBC 4.47 m/uL (3.80-5.40); RDW 13.4 % (11.5-15.5); WBC 9.5 k/uL (3.8-10.6)
[2019-02-09 17:38] LABS: ALT 17 U/L (9-52); AST 18 U/L (14-36); African American GFR (CKD) >90 (>60 ml/min/1.73 sqM); Albumin 3.9 g/dL (3.5-5.0); Alkaline Phosphatase 95 U/L (38-126); Anion Gap 6 mmol/L; Blood Urea Nitrogen 10 mg/dL (7-17); Calcium 9.6 mg/dL (8.4-10.2); Carbon Dioxide 23 mmol/L (22-30); Chloride 109 mmol/L (98-107); Glucose 99 mg/dL (74-99); Magnesium 2.1 mg/dL (1.6-2.3); Sodium 138 mmol/L (137-145); Total Bilirubin 0.4 mg/dL (0.2-1.3)
[2019-02-09 17:42] LABS: D-Dimer 0.53 mg/L FEU (<0.60); INR 0.9 (<1.2); Partial Thromboplastin Time 23.1 sec (22.0-30.0); Prothrombin Time 9.4 sec (9.0-12.0)
--- NOTE | 2019-02-09 17:50 | XR ---
EXAMINATION TYPE: XR chest 2V DATE OF EXAM: 02/09/2019 COMPARISON: 02/13/2016 HISTORY: Chest pain TECHNIQUE: Frontal and lateral views of the chest are obtained. FINDINGS: Heart and mediastinum are normal. Lungs are clear. Diaphragm is normal. Bony thorax appear s normal. IMPRESSION: Normal chest. No change.
--- NOTE | 2019-02-09 18:32 | CT ---
EXAMINATION TYPE: CT chest angio for PE DATE OF EXAM: 02/09/2019 COMPARISON: 02/16/2016 HISTORY: chest pain, elevated d-dimer CT DLP: 367.4 mGycm Automated exposure control for dose reduction was used. CONTRAST: CT Chest for pulmonary embolism performed with with IV Contrast, patient injected with 74cc mL of Iso lina 370. There are 3-D post processed images. FINDINGS: There is minimal subsegmental atelectasis right lung base. There is no evidence of a pulmonary mass. There is no pleural effusion. Heart size is normal. There is no pericardial effusion. There are no hi lar masses. There is no mediastinal adenopathy. Thoracic aorta appears intact without evidence of ane urysm or dissection. There is normal contrast opacification of the pulmonary arteries. There are no filling defects. The b wally thorax is intact. IMPRESSION: No evidence of pulmonary embolism. There is almost complete clearing of the infiltrates and atelectas is at the lung bases compared to old exam.
--- NOTE | 2019-02-09 19:22 | ED ---
Chest Pain HPI - General Chief Complaint: Chest Pain Stated Complaint: Chest heaviness Time Seen by Provider: 02/09/19 16:30 Source: patient Mode of arrival: ambulatory Limitations: no limitations - History of Present Illness Initial Comments: Patient is a 44-year-old female with chronic back pain who presents emergency department with reported shortness of breath. States that her breathing has been bad for the past week. She has had a nonproductive cough with wheezing. Reports to smoking 2 packs a day. Denies a diagnosis of COPD or asthma. Was given an albuterol inhaler her primary care physician. She has been using it without improvement in her breathing. Admits to associated chest pressure. No history of cardiac disease. Denies family history of premature . Denies pleuritic chest pain. No history of DVT or PE. No calf pain or swelling. No recent travel prolonged immobility. Patient has had a tubal ligation. Denies fevers or chills, nausea or vomiting. Denies ear pain, sore throat or nasal congestion. No sick contacts. She has not that she. There are no alleviating, precipitating or modifying factors - Related Data Home Medications Medication Instructions Recorded Confirmed Gabapentin [Neurontin] 300 mg PO TID 02/13/16 02/09/19 Cyclobenzaprine [Flexeril] 10 mg PO HS 04/20/16 02/09/19 HYDROcodone/APAP 5-325MG [[place] 1 tab PO TID PRN 02/09/19 02/09/19 5-325] Levothyroxine Sodium [Synthroid] 200 mcg PO DAILY 02/09/19 02/09/19 Naproxen [Naprosyn] 375 mg PO BID 02/09/19 02/09/19 Previous Rx's Medication Instructions Recorded Albuterol Nebulized [Ventolin 2.5 mg INHALATION Q4H PRN #25 nebu 02/09/19 Nebulized] Albuterol Sulfate [Albuterol 2 puff PO Q6H #1 inhaler 02/09/19 Sulfate Hfa] predniSONE 20 mg PO BID #10 tab 02/09/19 Allergies Allergy/AdvReac Type Severity Reaction Status Date / Time No Known Allergies Allergy Verified 02/09/19 17:59 Review of Systems ROS Statement: Those systems with pertinent positive or pertinent negative responses have been documented in the HPI. ROS Other: All systems not noted in ROS Statement are negative. EKG Findings - EKG Comments: EKG Findings:: EKG demonstrates normal sinus rhythm with ventricular rate of 83. IA interval 132. QRS 86. QTC 472. There is a Q wave in lead 3. No acute ST segment elevations or depressions concerning for ischemic changes Past Medical History Past Medical History: Osteoarthritis (OA), Skin Disorder, Thyroid Disorder Additional Past Medical History / Comment(s): lower back pain, psoriasis History of Any Multi-Drug Resistant Organisms: None Reported Past Surgical History: Appendectomy, Cholecystectomy, Tonsillectomy, Tubal Ligation Additional Past Surgical History / Comment(s): Tubes placed in ears when 5 years old. Past Anesthesia/Blood Transfusion Reactions: No Reported Reaction Past Psychological History: No Psychological Hx Reported Smoking Status: Current every day smoker Past Alcohol Use History: Occasional Past Drug Use History: None Reported - Past Family History Mother Family Medical History: No Reported History General Exam Limitations: no limitations General appearance: alert, in no apparent distress Head exam: Present: atraumatic, normocephalic, normal inspection Eye exam: Present: normal appearance, PERRL, EOMI. Absent: scleral icterus, conjunctival injection, periorbital swelling ENT exam: Present: normal exam, mucous membranes moist Neck exam: Present: normal inspection. Absent: tenderness, meningismus, lymphadenopathy Respiratory exam: Present: wheezes. Absent: respiratory distress, rales, rhonchi, stridor, accessory muscle use, decreased breath sounds Cardiovascular Exam: Present: regular rate, normal rhythm, normal heart sounds. Absent: systolic murmur, diastolic murmur, rubs, gallop, clicks GI/Abdominal exam: Present: soft, normal bowel sounds. Absent: distended, tenderness, guarding, rebound, rigid Extremities exam: Present: normal inspection, full ROM, normal capillary refill. Absent: tenderness, pedal edema, joint swelling, calf tenderness Back exam: Present: normal inspection Neurological exam: Present: alert, oriented X3, CN II-XII intact Psychiatric exam: Present: normal affect, normal mood Skin exam: Present: warm, dry, intact, normal color. Absent: rash Course Vital Signs 02/09/19 02/09/19 02/09/19 16:30 17:00 17:02 Temperature 97.7 F 97.7 F Pulse Rate 84 82 77 Respiratory 18 18 16 Rate Blood Pressure 153/97 141/104 O2 Sat by Pulse 98 93 L Oximetry 02/09/19 02/09/19 02/09/19 17:06 17:15 17:19 Temperature Pulse Rate 71 86 Respiratory 18 18 20 Rate Blood Pressure O2 Sat by Pulse Oximetry 02/09/19 02/09/19 02/09/19 17:26 18:00 19:38 Temperature 97.9 F Pulse Rate 92 87 Respiratory 14 18 Rate Blood Pressure 133/100 124/91 134/88 O2 Sat by Pulse 92 L 96 Oximetry Chest Pain MDM - MDM The patient is placed in room 5. A thorough history and physical exam was performed. The patient is diffusely wheezy upon auscultation. A DuoNeb breathing treatment was ordered. EKG was performed which demonstrates no isch emic signs. Provided he was established and patient was given 125 mg of Solu- Medrol. I recommended laboratory studies. CBC unremarkable. D-dimer 0.53. Coags are normal rate influence a and B are negative. Chest x-ray demonstrates normal chest. Because of the patient's elevated d-dimer did perform a CTA. CTA demonstrates no evidence of pulmonary embolism. Complete clearing of infiltrates and atelectasis at the lung bases. I reevaluated the patient. Her wheezing has greatly improved. She reports feeling better after the Duoneb treatment is requesting this medication for at home. She does have an albuterol inhaler which is . I did write her for another one. Patient reports feeling better results with the nebulizer different did fill a nebulizer paperwork which she can take to [facility]. She did provide her with a prescription for Duonebs. She will be given a 5 day course of prednisone. I instructed her to follow up with her primary care physician. She should see a senior analyst and quit smoking. The patient has any new or worsening symptoms she should return to the emergency room. Patient was in agreement with the treatment plan she is discharged home in stable condition Disposition Clinical Impression: Cough Disposition: HOME SELF-CARE Condition: Stable Instructions (If sedation given, give patient instructions): Reactive Airways Disease (ED) Additional Instructions: Please follow-up with your primary care doctor in 2 to 4 days. You should also see a senior analyst. I recommended Dr. Lawrence. Return to the emergency room for new or worsening symptoms Prescriptions: Albuterol Sulfate [Albuterol Sulfate Hfa] 2 puff PO Q6H #1 inhaler predniSONE 20 mg PO BID #10 tab Albuterol Nebulized [Ventolin Nebulized] 2.5 mg INHALATION Q4H PRN #25 nebu PRN Reason: difficulty in breathing Is patient prescribed a controlled substance at d/c from ED?: No Referrals: Mati Garcia DO [Primary Care Provider] - 1-2 days Jason Lawrence DO [Doctor of Osteopathic Medicine] - 1-2 days Time of Disposition: 19:22
[2019-02-09 19:39] VITALS: BP 134/88; PULSE 87; RESP 18; TEMP 97.9
== END 2019-02-09 19:39 | disposition home or self-care (01) ==
LOC: EC 16:25
DX: R05 Cough (principal); R06.2 Wheezing; R79.1 Abnormal coagulation profile; J98.11 Atelectasis; R91.8 Other nonspecific abnormal finding of lung field; Z76.0 Encounter for issue of repeat prescription; R06.02 Shortness of breath; R07.89 Other chest pain; G89.29 Other chronic pain; M19.90 Unspecified osteoarthritis, unspecified site; E07.9 Disorder of thyroid, unspecified; F17.210 Nicotine dependence, cigarettes, uncomplicated; Z79.1 Long term (current) use of non-steroidal anti-inflammatories (NSAID); Z79.890 Hormone replacement therapy; Z79.899 Other long term (current) drug therapy; Z98.51 Tubal ligation status; Z90.89 Acquired absence of other organs
CPT/HCPCS: 99285; 96374; 36415; 94640; 93005; 85379; 80053; 83605; 83735; 84484; 85025; 85610; 85730; 87502; 71046; 71275; J2930; Q9967

== ENCOUNTER 2019-12-26 09:07 | Emergency (ER) | payer OTHER ==
[2019-12-26 09:13] VITALS: BP 150/90; PULSE 88; RESP 18; TEMP 98
--- NOTE | 2019-12-26 09:36 | XR ---
EXAMINATION TYPE: XR shoulder complete RT DATE OF EXAM: 12/26/2019 COMPARISON: NONE HISTORY: Pain TECHNIQUE: Three views are submitted. FINDINGS: The osseous structures are intact. There is no acute fracture or dislocation. Arthropathy of the AC joint. IMPRESSION: 1. AC joint arthropathy.
[2019-12-26] MEDS ORDERED: ACET/COD 300 MG/30 MG STARTER PACK 6 TAB BTL PO STA (09:38)
--- NOTE | 2019-12-26 09:44 | ED ---
Upper Extremity HPI - General Chief Complaint: Extremity Injury, Upper Stated Complaint: Shoulder Injury Time Seen by Provider: 12/26/19 09:13 Source: patient Mode of arrival: ambulatory Limitations: no limitations - History of Present Illness Initial Comments: 44yo female presenting for 3 days of right anterior shoulder pain. Pt states that she had right anterior shoulder pain after having a "big stretch" she states she felt and heard a pop, since she has had anterior right shoulder pain and pain with overhead ROM. Patient denies tingling, loss of sensation of the extremity. Patient denies fevers, swelling, redness, chest pain, SOB, direct trauma of fall. Denies neck injury or pain. Denies limb paralysis or weakness of the extremity. Remaining ROS (-) - Related Data Home Medications Medication Instructions Recorded Confirmed Gabapentin [Neurontin] 300 mg PO TID 02/13/16 02/09/19 Cyclobenzaprine [Flexeril] 10 mg PO HS 04/20/16 02/09/19 HYDROcodone/APAP 5-325MG [[place] 1 tab PO TID PRN 02/09/19 02/09/19 5-325] Levothyroxine Sodium [Synthroid] 200 mcg PO DAILY 02/09/19 02/09/19 Naproxen [Naprosyn] 375 mg PO BID 02/09/19 02/09/19 Previous Rx's Medication Instructions Recorded Albuterol Nebulized [Ventolin 2.5 mg INHALATION Q4H PRN #25 nebu 02/09/19 Nebulized] Albuterol Sulfate [Albuterol 2 puff PO Q6H #1 inhaler 02/09/19 Sulfate Hfa] predniSONE [Deltasone] 20 mg PO BID #10 tab 02/09/19 Allergies Allergy/AdvReac Type Severity Reaction Status Date / Time No Known Allergies Allergy Verified 12/26/19 09:10 Review of Systems ROS Statement: Those systems with pertinent positive or pertinent negative responses have been documented in the HPI. ROS Other: All systems not noted in ROS Statement are negative. Past Medical History Past Medical History: Osteoarthritis (OA), Skin Disorder, Thyroid Disorder Additional Past Medical History / Comment(s): lower back pain, psoriasis History of Any Multi-Drug Resistant Organisms: None Reported Past Surgical History: Appendectomy, Cholecystectomy, Tonsillectomy, Tubal Ligation Additional Past Surgical History / Comment(s): Tubes placed in ears when 5 years old. Past Anesthesia/Blood Transfusion Reactions: No Reported Reaction Past Psychological History: No Psychological Hx Reported Smoking Status: Current every day smoker Past Alcohol Use History: Occasional Past Drug Use History: None Reported - Past Family History Mother Family Medical History: No Reported History General Exam - General Exam Comments Initial Comments: General: The patient is awake and alert, in no distress. Eye: Pupils are equal, round and reactive to light, extra-ocular movements are intact. No nystagmus. There is normal conjunctiva bilaterally. No signs of icterus. Ears, nose, mouth and throat: There are moist mucous membranes and no oral lesions. Neck: The neck is supple, there is no tenderness or JVD. Cardiovascular: There is a regular rate and rhythm. No murmur, rub or gallop is appreciated. Respiratory: Lungs are clear to auscultation, respirations are non-labored, breath sounds are equal. No wheezes, stridor, rales, or rhonchi. Musculoskeletal: Normal inspection of the right shoulder, pain over the AC joint. Pain with active and passive ROM of the right shoulder. Normal ROM, no tenderness at elbow, wrist, digits. Strength 5/5 distal to shoulder joints b/l, refuses to full strength test at the right shoulder secondary to pain. Sensation intact proximal and distal to injury site. Patient is able to make the okay fingers crossed follows up up was a small digit and thumb Radial pulses equal bilaterally 2+. Neurological: A&O x 3. CN II-XII intact grossly, There are no obvious motor or sensory deficits. Coordination appears grossly intact. Speech is normal. Skin: Skin is warm and dry and no rashes or lesions are noted. Psychiatric: Cooperative, appropriate mood & affect, normal judgment. Limitations: no limitations Course Vital Signs 12/26/19 09:10 Temperature 98 F Pulse Rate 88 Respiratory 18 Rate Blood Pressure 150/90 O2 Sat by Pulse 98 Oximetry Medical Decision Making - Medical Decision Making 44-year-old female presented for right shoulder pain after stretching heard pop. Patient is a reproducible pain to palpation over the AC joint there is AC joint arthropathy on xr. Patient neurovascularly intact no chest pain or shortness of breath she appears well nontoxic at this time she is stable for discharge with outpatient PCP f/u. Symptomatic treatment. Sling provided for comfort, encourage patient to get arm out and ranged multiple times a day. Patient verbalized understanding and was discharged appearing well. Disposition Clinical Impression: Right anterior shoulder pain, AC joint arthropathy Disposition: HOME SELF-CARE Condition: Good Instructions (If sedation given, give patient instructions): Acromioclavicular Separation (ED), Arthralgia (ED) Additional Instructions: Please use medication as discussed. Please follow-up with family doctor in the next 2 days, orthopedic surgery for persistent pain. Please return to emergency room if the symptoms increase or worsen or for any other concerns. Is patient prescribed a controlled substance at d/c from ED?: No Referrals: Mati Garcia DO [Primary Care Provider] - 1-2 days Keshav Matt PAC [PHYSICIAN [employer]ER] - 1-2 days Time of Disposition: 09:44
== END 2019-12-26 09:55 | disposition home or self-care (01) ==
LOC: EC 09:07
DX: M19.011 Primary osteoarthritis, right shoulder (principal); F17.200 Nicotine dependence, unspecified, uncomplicated; E07.9 Disorder of thyroid, unspecified; Z79.890 Hormone replacement therapy; Z79.899 Other long term (current) drug therapy
CPT/HCPCS: 72148; 99283

== ENCOUNTER → 2019-12-26 | Outpatient (CLI) | payer OTHER ==
--- NOTE | 2019-12-26 11:29 | MR ---
EXAMINATION TYPE: MR lumbar spine wo con DATE OF EXAM: 12/26/2019 COMPARISON: None HISTORY: Low back pain into rt buttocks TECHNIQUE: Multiplanar, multisequence images of the lumbar spine were acquired. Spinal alignment is normal. Vertebral body heights are preserved. Vertebral bone marrow is normal in signal. Multilevel degenerative disc disease, as described by level below. Multilevel disc desiccation. Lower thoracic cord is normal in signal. Conus terminates normally at T12-L1. Cauda equina nerve roots are normal in course and caliber. Paraspinal soft tissues are unremarkable. Visualized upper sacroiliac joints appear intact. T12-L1: Minimal posterior disc bulging. No canal stenosis. Foramina are patent bilaterally. L1-L2: No posterior disc herniation, protrusion, or bulging. No canal stenosis. Foramina are patent b ilaterally. L2-L3: Minimal posterior disc bulging. No canal stenosis. Foramina are patent bilaterally. L3-L4: No posterior disc herniation, protrusion, or bulging. No canal stenosis. Foramina are patent b ilaterally. L4-L5: No posterior disc herniation, protrusion, or bulging. No canal stenosis. Facet arthropathy. Fo ramina are patent bilaterally. L5-S1: Mild disc bulging. No canal stenosis. Facet arthropathy. Foramina are moderately narrowed on t he right and mildly narrowed on the left. IMPRESSION: Mild degenerative disc disease, and facet arthropathy. There is L5-S1 moderate right and mild left ne ural foramina narrowing. No canal stenosis.
== END | disposition home or self-care (01) ==
LOC: RADMRIMAIN 08:23
PROVIDERS: ATTEND Physician Assistant Medical
DX: M51.36 Other intervertebral disc degeneration, lumbar region (principal); M51.26 Other intervertebral disc displacement, lumbar region; M47.896 Other spondylosis, lumbar region
CPT/HCPCS: 72148

== ENCOUNTER 2020-06-20 18:12 | Emergency (ER) | payer OTHER ==
[2020-06-20 18:17] VITALS: BP 147/85; PULSE 91; RESP 18; TEMP 97.9
--- NOTE | 2020-06-20 19:21 | ED ---
Upper Extremity HPI - General Chief Complaint: Extremity Injury, Upper Stated Complaint: Right Middle finger injury Time Seen by Provider: 06/20/20 18:38 Source: patient, RN notes reviewed Mode of arrival: ambulatory Limitations: no limitations - History of Present Illness Initial Comments: Patient is a 45-year-old female that presents emergency Department with right middle finger pain. She noted that about a week ago she was rollerskating with her daughter try to prevent her from falling and felt a pop in her right middle finger. She noted that since then the pain is progressively gotten worse and she gets shooting pain down her forearm which she tries to gravity of thickening of. 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 She denied any decreased range of motion loss of sensation. But she did note that her strength is reduced due to pain. - Related Data Home Medications Medication Instructions Recorded Confirmed Gabapentin [Neurontin] 300 mg PO TID 02/13/16 02/09/19 Cyclobenzaprine [Flexeril] 10 mg PO HS 04/20/16 02/09/19 HYDROcodone/APAP 5-325MG [[place] 1 tab PO TID PRN 02/09/19 02/09/19 5-325] Levothyroxine Sodium [Synthroid] 200 mcg PO DAILY 02/09/19 02/09/19 Naproxen [Naprosyn] 375 mg PO BID 02/09/19 02/09/19 Previous Rx's Medication Instructions Recorded Albuterol Nebulized [Ventolin 2.5 mg INHALATION Q4H PRN #25 nebu 02/09/19 Nebulized] Albuterol Sulfate [Albuterol 2 puff PO Q6H #1 inhaler 02/09/19 Sulfate Hfa] predniSONE [Deltasone] 20 mg PO BID #10 tab 02/09/19 Allergies Allergy/AdvReac Type Severity Reaction Status Date / Time No Known Allergies Allergy Verified 06/20/20 18:17 Review of Systems ROS Statement: Those systems with pertinent positive or pertinent negative responses have been documented in the HPI. ROS Other: All systems not noted in ROS Statement are negative. Past Medical History Past Medical History: Osteoarthritis (OA), Skin Disorder, Thyroid Disorder Additional Past Medical History / Comment(s): lower back pain, psoriasis History of Any Multi-Drug Resistant Organisms: None Reported Past Surgical History: Appendectomy, Cholecystectomy, Tonsillectomy, Tubal Ligation Additional Past Surgical History / Comment(s): Tubes placed in ears when 5 years old. Past Anesthesia/Blood Transfusion Reactions: No Reported Reaction Past Psychological History: No Psychological Hx Reported Smoking Status: Current every day smoker Past Alcohol Use History: Occasional Past Drug Use History: None Reported - Past Family History Mother Family Medical History: No Reported History General Exam Limitations: no limitations General appearance: alert, in no apparent distress Head exam: Present: atraumatic, normocephalic, normal inspection Eye exam: Present: normal appearance, PERRL, EOMI. Absent: scleral icterus, conjunctival injection, periorbital swelling ENT exam: Present: normal exam, mucous membranes moist Neck exam: Present: normal inspection. Absent: tenderness, meningismus, lymphadenopathy Respiratory exam: Present: normal lung sounds bilaterally. Absent: respiratory distress, wheezes, rales, rhonchi, stridor Cardiovascular Exam: Present: regular rate, normal rhythm, normal heart sounds. Absent: systolic murmur, diastolic murmur, rubs, gallop, clicks GI/Abdominal exam: Present: soft, normal bowel sounds. Absent: distended, tenderness, guarding, rebound, rigid Extremities exam: Present: normal inspection, full ROM, normal capillary refill, other (Decreased strength of right middle finger due to pain.). Absent: t enderness, pedal edema, joint swelling, calf tenderness Neurological exam: Present: alert, oriented X3, CN II-XII intact Expanded Speech: Present: fluid speech Cranial nerves: EOM's Intact: Normal, Nystagmus: Normal Motor strength exam: RUE: 5 (Decreased taper and floater strength secondary to pain. Rest of strength is intact.), LUE: 5, RLE: 5, LLE: 5 Eye Response: (4) open spontaneously Motor Response: (6) obeys commands Verbal Response: (5) oriented Psychiatric exam: Present: normal affect, normal mood Skin exam: Present: warm, dry, intact, normal color. Absent: rash Course Vital Signs 06/20/20 18:14 Temperature 97.9 F Pulse Rate 91 Respiratory 18 Rate Blood Pressure 147/85 O2 Sat by Pulse 97 Oximetry Procedures - Orthopedic Splinting/Casting Injury #1 Side: right Upper Extremity Injury Location: finger (Right middle finger) Upper Extremity Immobilizer: finger (other) (Aluminum padded.) Medical Decision Making - Medical Decision Making 45 year old female complaining of right middle finger pain status post roller skating accident. 15 mg of Toradol, right hand x-ray ordered. Case discussed with Dr. Sosa onset patient discharged home with follow-up to orthopedist. Right middle finger splint placed. - Radiology Data Radiology results: report reviewed, image reviewed Right hand x-ray: The metacarpals are intact. No fracture nor dislocation joint spaces are fairly normal. Carpal bones. Intact. Disposition Clinical Impression: Finger sprain Disposition: HOME SELF-CARE Condition: Stable Instructions (If sedation given, give patient instructions): Hand Sprain (ED) Additional Instructions: Please return to the Emergency Department if symptoms worsen or any other concerns. Follow-up with orthopedist in 3-5 days. [id number] pain medication as needed for conservative management. Note given Is patient prescribed a controlled substance at d/c from ED?: No Referrals: Mati Garcia DO [Primary Care Provider] - 1-2 days Zander Harris DO [Doctor of Osteopathic Medicine] - 1-2 days Time of Disposition: 20:28
--- NOTE | 2020-06-20 19:39 | XR ---
EXAMINATION TYPE: XR hand complete RT DATE OF EXAM: 06/20/2020 COMPARISON: NONE HISTORY: Pain. TECHNIQUE: 3 views FINDINGS: The metacarpals are intact. I see no fracture nor dislocation. Joint spaces are fairly norm al. Carpal bones appear intact. IMPRESSION: Negative right hand exam.
== END 2020-06-20 20:36 | disposition home or self-care (01) ==
LOC: EC 18:12
DX: S63.612A Unspecified sprain of right middle finger, initial encounter (principal); F17.200 Nicotine dependence, unspecified, uncomplicated; Z79.1 Long term (current) use of non-steroidal anti-inflammatories (NSAID); Z79.52 Long term (current) use of systemic steroids; X58.XXXA Exposure to other specified factors, initial encounter
CPT/HCPCS: 99283

== ENCOUNTER → 2022-07-14 | Outpatient (CLI) | payer OTHER ==
--- NOTE | 2022-07-15 08:15 | MM ---
Reason for Exam: Screening (asymptomatic). Last mammogram was performed 3 year(s) and 8 month(s) ago. Patient History: Menarche at age 9. First Full-Term at age 16. Postmenopausal. Risk Values: Melissa 5 year model risk: 0.7%. NCI Lifetime model risk: 7.4%. Prior Study Comparison: 04/06/2015 Bilateral Screening Mammogram, [facility]. 01/06/2017 Bilateral Screening Mammogram, [facility]. 11/09/2018 Bilateral Screening Mammogram, [facility]. Tissue Density: The breast tissue is heterogeneously dense. This may lower the sensitivity of mammography. Findings: Analyzed By CAD. There is no suspicious group of microcalcifications or new suspicious mass in either breast. Overall Assessment: Negative, BI-RAD 1 Management: Screening Mammogram of both breasts in 1 year. A clinical breast exam by your physician is recommended on an annual basis and results should be correlated with mammographic findings. Electronically signed and approved by: Des Elise D.O.
== END | disposition home or self-care (01) ==
LOC: RADMAMWWP 10:53
PROVIDERS: ATTEND Family Medicine
DX: Z12.31 Encounter for screening mammogram for malignant neoplasm of breast (principal); Z78.0 Asymptomatic menopausal state
CPT/HCPCS: 77063; 77067

== ENCOUNTER → 2022-07-27 | Outpatient (CLI) | payer OTHER ==
--- NOTE | 2022-07-28 20:09 | MR ---
EXAMINATION TYPE: MR lumbar spine wo con DATE OF EXAM: 07/27/2022 COMPARISON: MRI lumbar spine December 26, 2019 HISTORY: Low back pain that radiates down right leg for over 9 years per patient. TECHNIQUE: Multiplanar, multisequence imaging of the lumbar spine is performed without IV contrast. FINDINGS: Sagittal images of the lumbar spine show vertebral body heights and alignment to remain sat isfactory. Multilevel disc desiccation but disc space heights are preserved. Believe prior study is m islabeled with conus medullaris terminating at mid L1 level similar to prior. The bone marrow signal intensity is within normal limits. Axial images begin at T12-L1 level which remains within normal limits. Axial images at L1-L2 level show mild broad disc bulge minimally effacing anterior thecal sac, no sig nificant change from prior study labeled T12-L1 level. Axial images at L2-L3 through L4-L5 levels remain within normal limits. Axial images at L5-S1 level redemonstrate mild to moderate facet arthropathy bilaterally. Spinal giuseppe l is preserved. Mild bilateral neural foraminal narrowing is again seen. No significant change from p rior. Axial images at the S1-S2 level redemonstrate mild to moderate facet arthropathy. Spinal canal is pre served. Paraspinal muscle bulk is maintained. Anteverted uterus is noted on the localizer. IMPRESSION: Mild multilevel degenerative change in the lumbar spine as detailed above. No significant change or degenerative progression from prior MRI.
== END | disposition home or self-care (01) ==
LOC: RADMRIMAIN 19:27
PROVIDERS: ATTEND Family Medicine
DX: M47.26 Other spondylosis with radiculopathy, lumbar region (principal); M51.16 Intervertebral disc disorders with radiculopathy, lumbar region; R53.1 Weakness
CPT/HCPCS: 72148

== ENCOUNTER 2024-08-05 10:41 | Emergency (ER) | payer OTHER ==
--- NOTE | 2024-08-05 11:15 | ED ---
General Adult HPI - General Chief complaint: Recheck/Abnormal Lab/Rx Stated complaint: Irreg Labs Time Seen by Provider: 08/05/24 10:57 Source: patient, family, RN notes reviewed Mode of arrival: ambulatory Limitations: no limitations - History of Present Illness Initial comments: This is a 49-year-old female with history of hypertension hyperlipidemia presenting for elevated blood pressure. Patient states she was attempting to donate blood on Monday when it was discovered that she had severely elevated blood pressure, with the most recent being 211/110 mmHg. Patient also endorses mid chest pressure (/10) and palpitations which started yesterday. Denies personal or family cardiac history. Denies any current use of antihypertensive medications. Denies radiating pain, dyspnea, dizziness, presyncope, diaphoresis. Onset/Timin -: days(s) Radiation: non-radiation Severity scale (1-10): 7 Quality: crushing Consistency: constant Associated Symptoms: chest pain - Related Data Home Medications Medication Instructions Recorded Confirmed Gabapentin [Neurontin] 300 mg PO TID 02/13/16 02/09/19 Cyclobenzaprine [Flexeril] 10 mg PO HS 04/20/16 02/09/19 HYDROcodone/APAP 5-325MG [Hillister 1 tab PO TID PRN 02/09/19 02/09/19 5-325] Levothyroxine Sodium [Synthroid] 200 mcg PO DAILY 02/09/19 02/09/19 Naproxen [Naprosyn] 375 mg PO BID 02/09/19 02/09/19 Previous Rx's Medication Instructions Recorded Albuterol Nebulized [Ventolin 2.5 mg INHALATION Q4H PRN #25 nebu 02/09/19 Nebulized] Albuterol Sulfate [Albuterol 2 puff PO Q6H #1 inhaler 02/09/19 Sulfate Hfa] predniSONE [Deltasone] 20 mg PO BID #10 tab 02/09/19 amLODIPine [Norvasc] 5 mg PO DAILY #10 tab 08/05/24 Allergies Allergy/AdvReac Type Severity Reaction Status Date / Time No Known Allergies Allergy Verified 08/05/24 10:52 Review of Systems ROS Statement: Those systems with pertinent positive or pertinent negative responses have been documented in the HPI. ROS Other: All systems not noted in ROS Statement are negative. Past Medical History Past Medical History: Osteoarthritis (OA), Skin Disorder, Thyroid Disorder Additional Past Medical History / Comment(s): lower back pain, psoriasis History of Any Multi-Drug Resistant Organisms: None Reported Past Surgical History: Appendectomy, Cholecystectomy, Tonsillectomy, Tubal Ligation Additional Past Surgical History / Comment(s): Tubes placed in ears when 5 years old. Past Anesthesia/Blood Transfusion Reactions: No Reported Reaction Past Psychological History: No Psychological Hx Reported Smoking Status: Current every day smoker Past Alcohol Use History: Occasional Past Drug Use History: None Reported - Past Family History Mother Family Medical History: No Reported History General Exam Limitations: no limitations Course Vital Signs 08/05/24 08/05/24 08/05/24 10:49 11:54 13:21 Temperature 97.7 F Pulse Rate 87 84 76 Pulse Rate [ 84 Left Prone Radial] Respiratory 18 20 18 Rate Blood Pressure 213/103 182/96 168/95 O2 Sat by Pulse 100 98 96 Oximetry 08/05/24 13:48 Temperature 97.9 F Pulse Rate 75 Pulse Rate [ Left Prone Radial] Respiratory 18 Rate Blood Pressure 165/91 O2 Sat by Pulse 96 Oximetry Medical Decision Making - Medical Decision Making Was pt. sent in by a medical professional or institution (, PA, AMMONIA OPERATOR, urgent care, hospital, or [facility]...) When possible be specific @ -[No] Did you speak to anyone other than the patient for history (EMS, parent, family, police, friend...)? What history was obtained from this source @ -[No] Did you review nursing and triage notes (agree or disagree)? Why? @ -[I reviewed and agree with nursing and triage notes] Were old charts reviewed (outside hosp., previous admission, EMS record, old EKG, old radiological studies, urgent care reports/EKG's, [facility] records)? Report findings @ -[No old charts were reviewed] Differential Diagnosis (chest pain, altered mental status, abdominal pain women, abdominal pain men, vaginal bleeding, weakness, fever, dyspnea, syncope, headache, dizziness, GI bleed, back pain, seizure, CVA, palpatations, mental health, musculoskeletal)? @ -Differential Chest Pain: Stable Angina, Unstable Angina, STEMI, NSTEMI Aortic Dissection, Pneumothorax, Musculoskeletal, Esophageal Spasm GERD, Cholecystitis, Pancreatitis, Zoster, this is not meant to be an all-inclusive list. EKG interpreted by me (3pts min.). @ -Sinus rhythm without ST deviation and T wave inversion. Ventricular rate 76 bpm, MARICHUY 122 ms, QRS 94 ms, QTc 402 ms. X-rays interpreted by me (1pt min.). @ -[None done] CT interpreted by me (1pt min.). @ -[None done] U/S interpreted by me (1pt. min.). @ -[None done] What testing was considered but not performed or refused? (CT, X-rays, U/S, labs)? Why? @ -[None] What meds were considered but not given or refused? Why? @ -[None] Did you discuss the management of the patient with other professionals (kodak buchanan imichelle Calvin, PA, AMMONIA OPERATOR, lab, RT, psych nurse, social worker delinquency prevention, business development analyst, teacher, amphibious operations officer, case finisher)? Give summary @ -[No] Was smoking cessation discussed for >3mins.? @ -[No] Was critical care preformed (if so, how long)? @ -[No] Were there social determinants of health that impacted care today? How? (Homelessness, low income, unemployed, alcoholism, drug addiction, transportation, low edu. Level, literacy, decrease access to med. care, penitentiary, rehab)? @ -[No] Was there de-escalation of care discussed even if they declined (Discuss DNR or withdrawal of care, Hospice)? DNR status @ -[No] What co-morbidities impacted this encounter? (DM, HTN, Smoking, COPD, CAD, Cancer, CVA, ARF, Chemo, Hep., AIDS, mental health diagnosis, sleep apnea, morbid obesity)? @ -[None] Was patient admitted / discharged? Hospital course, mention meds given and route, prescriptions, significant lab abnormalities, going to OR and other pertinent info. @ -[hospital course] Undiagnosed new problem with uncertain prognosis? @ -[No] Drug Therapy requiring intensive monitoring for toxicity (Heparin, Nitro, In sulin, Cardizem)? @ -[No] Were any procedures done? @ -[No] Diagnosis/symptom? @ -[default] Acute, or Chronic, or Acute on Chronic? @ -Acute Uncomplicated (without systemic symptoms) or Complicated (systemic symptoms)? @ -Uncomplicated Side effects of treatment? @ -[No] Exacerbation, Progression, or Severe Exacerbation? @ -[No] Poses a threat to life or bodily function? How? (Chest pain, USA, MS, pneumonia, PE, COPD, DKA, ARF, appy, cholecystitis, CVA, Diverticulitis, Homicidal, Suicidal, threat to staff... and all critical care pts) @ -[No] - Lab Data Result diagrams: 08/05/24 11:34 08/05/24 11:34 Lab Results 08/05/24 08/05/24 08/05/24 Range/Units 11:34 11:34 11:34 WBC 7.74 (4.50-10.00) 10*3/uL RBC 4.45 (4.10-5.20) 10*6/uL Hgb 14.7 (12.0-15.0) g/dL Hct 41.4 (37.2-46.3) % MCV 93.0 (80.0-97.0) fL MCH 33.0 H (27.0-32.0) pg MCHC 35.5 (32.0-37.0) g/dL Plt Count 251 (140-440) 10*3/uL MPV 9.6 (9.5-12.2) fL Immature Gran % (Auto) 0.3 % Neutrophils % 71.7 % Lymphocytes % 21.4 % Monocytes % 5.3 % Eosinophils % 0.8 % Basophils % 0.5 % Immature Gran # 0.02 (0.00-0.04) 10*3/uL Neutrophils # 5.55 (1.80-7.70) 10*3/uL Lymphocytes # 1.66 (0.90-5.00) 10*3/uL Monocytes # 0.41 (0.20-1.00) 10*3/uL Eosinophils # 0.06 (0.04-0.35) 10*3/uL Basophils # 0.04 (0.00-0.10) 10*3/uL PT 10.2 (10.0-12.5) sec INR 0.9 (<1.2) APTT 21.9 L (22.0-30.0) sec Sodium 137 (137-145) mmol/L Potassium 3.8 (3.5-5.1) mmol/L Chloride 105 (98-107) mmol/L Carbon Dioxide 24 (22-30) mmol/L Anion Gap 8 mmol/L BUN 11 (7-17) mg/dL Creatinine 0.50 L (0.52-1.04) mg/dL Est GFR (CKD-EPI)AfAm >90 (>60 ml/min/1.73 sqM) Est GFR (CKD-EPI)NonAf >90 (>60 ml/min/1.73 sqM) Glucose 106 H (74-99) mg/dL Calcium 10.4 H (8.4-10.2) mg/dL Magnesium 2.1 (1.6-2.3) mg/dL Total Bilirubin 1.3 (0.2-1.3) mg/dL AST 29 (14-36) U/L ALT 19 (4-34) U/L Alkaline Phosphatase 94 (38-126) U/L Troponin I (0.000-0.034) ng/mL Total Protein 7.0 (6.3-8.2) g/dL Albumin 4.4 (3.5-5.0) g/dL 08/05/24 Range/Units 11:34 WBC (4.50-10.00) 10*3/uL RBC (4.10-5.20) 10*6/uL Hgb (12.0-15.0) g/dL Hct (37.2-46.3) % MCV (80.0-97.0) fL MCH (27.0-32.0) pg MCHC (32.0-37.0) g/dL Plt Count (140-440) 10*3/uL MPV (9.5-12.2) fL Immature Gran % (Auto) % Neutrophils % % Lymphocytes % % Monocytes % % Eosinophils % % Basophils % % Immature Gran # (0.00-0.04) 10*3/uL Neutrophils # (1.80-7.70) 10*3/uL Lymphocytes # (0.90-5.00) 10*3/uL Monocytes # (0.20-1.00) 10*3/uL Eosinophils # (0.04-0.35) 10*3/uL Basophils # (0.00-0.10) 10*3/uL PT (10.0-12.5) sec INR (<1.2) APTT (22.0-30.0) sec Sodium (137-145) mmol/L Potassium (3.5-5.1) mmol/L Chloride (98-107) mmol/L Carbon Dioxide (22-30) mmol/L Anion Gap mmol/L BUN (7-17) mg/dL Creatinine (0.52-1.04) mg/dL Est GFR (CKD-EPI)AfAm (>60 ml/min/1.73 sqM) Est GFR (CKD-EPI)NonAf (>60 ml/min/1.73 sqM) Glucose (74-99) mg/dL Calcium (8.4-10.2) mg/dL Magnesium (1.6-2.3) mg/dL Total Bilirubin (0.2-1.3) mg/dL AST (14-36) U/L ALT (4-34) U/L Alkaline Phosphatase (38-126) U/L Troponin I <0.012 (0.000-0.034) ng/mL Total Protein (6.3-8.2) g/dL Albumin (3.5-5.0) g/dL Disposition Clinical Impression: Hypertensive urgency Disposition: HOME SELF-CARE Condition: Good Instructions (If sedation given, give patient instructions): Hypertension (ED) Additional Instructions: Follow-up with PCP for scheduled appointment later this week for further evaluation and workup. Prescriptions: amLODIPine [Norvasc] 5 mg PO DAILY #10 tab Is patient prescribed a controlled substance at d/c from ED?: No Referrals: Mati Garcia DO [Primary Care Provider] - 1-2 days Time of Disposition: 13:51
[2024-08-05 11:43] LABS: Basophils # (A) 0.04 10*3/uL (0.00-0.10); Basophils % (A) 0.5 %; Eosinophils # (A) 0.06 10*3/uL (0.04-0.35); Eosinophils % (A) 0.8 %; HCT 41.4 % (37.2-46.3); HGB 14.7 g/dL (12.0-15.0); Lymphocytes # (A) 1.66 10*3/uL (0.90-5.00); Lymphocytes % (A) 21.4 %; MCHC 35.5 g/dL (32.0-37.0); Mean Platelet Volume 9.6 fL (9.5-12.2); Monocytes # (A) 0.41 10*3/uL (0.20-1.00); Monocytes % (A) 5.3 %; Neutrophils # (A) 5.55 10*3/uL (1.80-7.70); Neutrophils % (A) 71.7 %; Platelet Count 251 10*3/uL (140-440); RBC 4.45 10*6/uL (4.10-5.20); RDW 13.7 % (11.5-14.5); WBC 7.74 10*3/uL (4.50-10.00)
--- NOTE | 2024-08-05 11:56 | XR ---
EXAMINATION TYPE: XR chest 2V DATE OF EXAM: 08/05/2024 11:51 AM COMPARISON: 02/09/2019 CLINICAL INDICATION: Female, 49 years old with history of Chest Pain: Shortness of breath TECHNIQUE: XR chest 2V views of the chest are obtained. FINDINGS: Scattered senescent parenchymal changes noted. Hyperinflation compatible with COPD. No evidence for infiltrate. No evidence for atelectasis. Heart size is stable. Mediastinal structures are stable and grossly unremarkable. No evidence for hilar prominence. Degenerative changes dorsal spine. IMPRESSION: 1. No evidence for acute pulmonary disease. [facility], , 08/05/2024 11:53 AM
[2024-08-05 12:00] LABS: INR 0.9 (<1.2); Partial Thromboplastin Time 21.9 sec (22.0-30.0); Prothrombin Time 10.2 sec (10.0-12.5)
[2024-08-05 12:01] LABS: ALT 19 U/L (4-34); AST 29 U/L (14-36); African American GFR (CKD) >90 (>60 ml/min/1.73 sqM); Albumin 4.4 g/dL (3.5-5.0); Alkaline Phosphatase 94 U/L (38-126); Anion Gap 8 mmol/L; Blood Urea Nitrogen 11 mg/dL (7-17); Calcium 10.4 mg/dL (8.4-10.2); Carbon Dioxide 24 mmol/L (22-30); Chloride 105 mmol/L (98-107); Glucose 106 mg/dL (74-99); Magnesium 2.1 mg/dL (1.6-2.3); Non-African American GFR(CKD) >90 (>60 ml/min/1.73 sqM); Potassium 3.8 mmol/L (3.5-5.1); Sodium 137 mmol/L (137-145); Total Bilirubin 1.3 mg/dL (0.2-1.3)
[2024-08-05] MEDS: LABETALOL 200 MG TAB PO STA (12:23)
[2024-08-05 13:22] VITALS: RESP 18
[2024-08-05 13:49] VITALS: BP 165/91; PULSE 75; TEMP 97.9
== END 2024-08-05 14:00 | disposition home or self-care (01) ==
LOC: EC 10:41
DX: I16.0 Hypertensive urgency (principal); I10 Essential (primary) hypertension; E78.5 Hyperlipidemia, unspecified; F17.200 Nicotine dependence, unspecified, uncomplicated
CPT/HCPCS: 36415; 71046; 80053; 83735; 84484; 85025; 85610; 85730; 93005; 99284

== ENCOUNTER → 2024-08-21 | Outpatient (CLI) | payer OTHER ==
--- NOTE | 2024-08-21 09:02 | MM ---
Reason for Exam: Screening (asymptomatic). Last mammogram was performed 2 year(s) and 1 month(s) ago. Patient History: Menarche at age 9. First Full-Term at age 16. Postmenopausal. Risk Values: Melissa 5 year model risk: 0.8%. NCI Lifetime model risk: 7.1%. Prior Study Comparison: 01/06/2017 Bilateral Screening Mammogram, [facility]. 11/09/2018 Bilateral Screening Mammogram, [facility]. 07/14/2022 Bilateral MG 3D screening mammo w/cad, [facility]. Tissue Density: The breasts are heterogeneously dense, which may obscure small masses. Findings: Analyzed By CAD. Subcentimeter benign-appearing bilateral axillary lymph nodes are redemonstrated. There is no suspicious group of microcalcifications or new suspicious mass in either breast. Overall Assessment: Negative, BI-RAD 1 Management: Screening Mammogram of both breasts in 1 year. . Patient should continue monthly self-breast exams. A clinical breast exam by your physician is recommended on an annual basis. This exam should not preclude additional follow-up of suspicious palpable abnormalities. Note on Melissa scores and lifetime risk: 1. A Melissa score greater than 3% is considered moderate risk. If this is the case, consider specialist referral to assess eligibility for a risk reducing agent. 2. If overall lifetime risk for the development of breast cancer is 20% or higher, the patient may qualify for future screening with alternating mammogram and breast MRI. [facility], , 08/21/2024 8:59 AM. Electronically signed and approved by: Drew Adams M.D.
== END | disposition home or self-care (01) ==
LOC: RADMAMWWP 08:27
PROVIDERS: ATTEND Family Medicine
DX: Z12.31 Encounter for screening mammogram for malignant neoplasm of breast (principal); R92.333 Mammographic heterogeneous density, bilateral breasts; Z78.0 Asymptomatic menopausal state
CPT/HCPCS: 77063; 77067